=== PATIENT | female | born 1960 | race Caucasian/White ===

== ENCOUNTER 2020-01-07 07:17 | Day surgery (SDC) | payer OTHER, SELFPAY ==
[~2020-01-07] VITALS: Ht 157.5 cm; Wt 90.7 kg
[~2020-01-07 07:17] MED LIST: [UNRECOGNIZED DRUG - REMARK]
[2020-01-07] MEDS ORDERED: fentaNYL citrate 0.05 MG/ML VIAL ONE (09:11)
[2020-01-07] MEDS ORDERED: MIDAZOLAM 2 MG/2 ML VIAL ONE (09:11)
[2020-01-07] MEDS ORDERED: MIDAZOLAM 2 MG/2 ML VIAL IVP ONE (10:05)
== END 2020-01-07 10:25 | disposition home or self-care (01) ==
LOC: MDS 07:17 → MFCC 07:18 → MDS 10:25
PROVIDERS: ATTEND Internal Medicine Gastroenterology
DX: R10.13 Epigastric pain (principal); K21.9 Gastro-esophageal reflux disease without esophagitis; K44.9 Diaphragmatic hernia without obstruction or gangrene; K22.2 Esophageal obstruction; I10 Essential (primary) hypertension; Z90.49 Acquired absence of other specified parts of digestive tract; Z79.899 Other long term (current) drug therapy; Z11.59 Encounter for screening for other viral diseases
CPT/HCPCS: 36415; 43239; 86677; J2250; U0003; J3010